=== PATIENT | male | born 1985 ===

== ENCOUNTER 2023-12-10 09:09 | Emergency (ER) | payer BC, SELFPAY ==
--- NOTE | ~2023-12-10 | CT_ITS ---
EXAMINATION: CT ABDOMEN AND PELVIS WITHOUT CONTRAST CLINICAL INFORMATION: Flank pain COMPARISON: None available. TECHNIQUE: Multidetector volumetric imaging was performed from the superior aspect of the liver through the pubic symphysis. Sagittal and coronal reformatted images were obtained on the technologist's workstation. This CT examination was performed using dose optimization techniques as appropriate, variously including the following: *Automated exposure control *Adjustment of mA and/or kV according to patient size (this includes techniques or standardized protocols for targeted exams where dose is matched to indication/reason for exam; i.e. extremities or head) *Use of iterative reconstruction technique DLP: 359 mGy-cm FINDINGS: LUNG BASES: The visualized lung bases are unremarkable. LIVER, GALLBLADDER, AND BILIARY TREE: The liver is normal in size, shape, and attenuation. No focal hepatic lesion or biliary ductal dilatation is present. The gallbladder is unremarkable with no evidence of radiopaque gallstones, gallbladder wall thickening, or obvious pericholecystic inflammatory changes. PANCREAS: Punctate calcification is seen at the tail of the pancreas possibly related to adjacent splenic vasculature. SPLEEN: Unremarkable. ADRENAL GLANDS: Unremarkable. KIDNEYS AND URETERS: 1 mm punctate stone central left kidney nonobstructive. 2 mm punctate stone mid left kidney nonobstructive. No suspicious mass, hydronephrosis or perinephric collection in either kidney. BLADDER: Unremarkable. GASTROINTESTINAL TRACT: Moderate stool burden in the sigmoid. There does appear to be mural thickening and induration in the transverse colon which is decompressed. Mild colitis not excluded. There may be a very mild element of pericolonic induration as well. The ascending colon appears normal. Appendix normal. No bowel obstruction. No drainable collections. ABDOMINAL WALL: No significant hernia is appreciated. LYMPH NODES: Normal. VASCULAR: Unremarkable. PELVIC VISCERA: Unremarkable. OSSEOUS STRUCTURES: Unremarkable. Tiny punctate bone island right iliac bone. Lumbar spine intact. CT/CT abdomen pelvis wo IV con IMPRESSION: Decompressed transverse colon versus an appearance of a mild colitis. Tiny punctate left nephroliths. No hydronephrosis. Fleischner guidelines were followed. Electronically signed by: Niranjan Marina MD 12/10/2023 11:20 AM EDT
[2023-12-10 09:12] VITALS: PULSE 80; RESP 18; TEMP 37; O2SAT 97; BMI 23.9
[2023-12-10 09:45] LABS: MANUAL DIFF FLAG NO
[2023-12-10 09:46] LABS: Basophils Absolute Auto 0.1 X10*3/uL (0.0-0.2); Basophils Percent Auto 0.5 % (0-2); Eosinophils Percent Auto 0.3 % (0-4); Hematocrit 45.5 % (42.0-52.0); Hemoglobin 15.6 g/dl (14.0-18.0); Imm Gran Abs Auto 0.02 X10*3/uL (0.00-0.03); Imm Gran Pct Auto 0.2 % (0.0-0.4); Lymphocytes Absolute Auto 1.8 X10*3/uL (1.2-4.9); Mean Corpuscular HGB Conc 34.3 g/dl (31.0-36.0); Mean Corpuscular Hemoglobin 30.2 pg (27.0-33.0); Mean Corpuscular Volume 88.2 fL (80.0-98.0); Mean Platelet Volume 9.6 fL (9.4-12.4); Monocytes Absolute Auto 0.5 X10*3/uL (0.1-1.2); Monocytes Percent Auto 5.1 % (2-11); Neutrophils Absolute Auto 7.1 x10*3/uL (2.0-8.3); Neutrophils Percent Auto 74.9 % (45-73); Platelet Count 300 X10*3/uL (160-400); Red Blood Count 5.16 X10*6/uL (4.60-5.80); Red Cell Distribution Width 13.3 % (11.0-16.0); White Blood Count 9.4 X10*3/uL (4.8-10.8)
[2023-12-10 09:59] LABS: Alanine Aminotransferase 28 U/L (0-40); Albumin Level 4.6 g/dL (3.5-5.0); Alkaline Phosphatase 82 U/L (39-117); Anion Gap 13 (12-20); Aspartate Amino Transferase 22 U/L (5-37); Bilirubin Total 0.3 mg/dL (0.0-1.0); Blood Urea Nitrogen 14 mg/dL (9-16); Calcium 9.8 mg/dL (8.4-10.2); Carbon Dioxide 23 mmol/L (22-29); Chloride 109 mmol/L (96-108); Creatinine Clr Calc Pharmacy 93.7; Estimated Glomerular Filt Rate > 60; Glucose Random 137 mg/dL (60-115); Potassium 4.2 mmol/L (3.3-5.1); Sodium 141 mmol/L (135-145); Total Protein 7.1 g/dL (6.5-8.0)
[2023-12-10 10:00] VITALS: BP 125/79; PULSE 65; RESP 18; O2SAT 98
--- NOTE | 2023-12-10 10:02 | PC.NURSE ---
Pt comes from home for abd/flank pain starting a few days ago. Pt reports he's had a hx of kidney stones, last being a few years ago. Last kidney stones he had, he was able to pass them. Has not noticed any hematuria/frequency/incontinence, pt states he did have a little bit of burning this morning during urination. A/ox4, respirations even and unlabored, lung sounds cta bilaterally, s1 and s2 heard, abdomen soft, tender on palpation. Denies nausea/vomiting, cp/sob, dizziness. Vital signs updated, family at bedside, pt updated on plan for CT scan, labs, and UA. Call magallanes within reach, all needs met at this time.
[2023-12-10 10:26] LABS: Influenza A PCR NEGATIVE (Negative); Influenza B PCR NEGATIVE (Negative); Resp Syncy Virus RNA Qual PCR NEGATIVE (Negative); SARS COV2 PCR INHOUSE NEGATIVE (Negative)
--- NOTE | 2023-12-10 11:05 | ED.ABDPAIN ---
HPI - Abdominal Pain General Chief Complaint: Abdominal Pain Stated Complaint: abd pain-vomiting Time Seen by Provider: 12/10/23 09:52 History of Present Illness HPI narrative: Patient is a 38-year-old male presents today with having left-sided flank pain. Sudden onset radiating to the left lower quadrant. The pain is sharp. Very similar to previous bouts of kidney stone. There is no fever no chills. There is some nausea vomiting associated with this. Very abrupt. Started this morning. Patient denies any issues with bowel movement. There was no coughing or congestion or upper respiratory symptoms. There is no chest pain. Patient is from home. Related Data Previous Rx's ?Medication ?Instructions ?Recorded ibuprofen 400 mg tablet 400 mg PO Q6H PRN pain #20 tabs 12/10/23 ondansetron 4 mg disintegrating 4 mg PO TID PRN nausea and 12/10/23 tablet vomiting 5 days #10 tabs oxycodone 5 mg tablet 5 mg PO Q8H PRN pain #7 tabs 12/10/23 Allergies Allergy/AdvReac Type Severity Reaction Status Date / Time No Known Allergies Allergy Verified 12/10/23 09:14 Review of Systems Review of Systems No fever no chills no diaphoresis Yes all other systems are reviewed and are negative [facility] Past Medical History Attestation statement: The following information was validated with the patient. Social History Social History Advance Directives: No Do you have a plan to hurt others: No Plan Physical Exam ED Vital Signs: Vital Signs - 24 hr 12/10/23 09:12 12/10/23 10:00 12/10/23 11:11 Temperature 98.6 F Pulse Rate 80 65 Respiratory Rate 18 18 18 Blood Pressure 125/79 Pulse Oximetry 97 98 Oxygen Delivery Method Room Air Room Air BMI result Body Mass Index 23.9 Appearance: Alert. Oriented X3. No acute distress. Eyes: Pupils equal, round and reactive to light. ENT: Pharynx normal. Neck: Normal inspection. Neck supple. No lymph nodes noted. No crepitus CVS: Normal heart rate and rhythm. Pulses normal. Normal S1 and S2 Respiratory: No respiratory distress. Breath sounds normal. No Wheezing. No rales Abdomen: Soft and nontender. No rigidity. No distention. good BS x4 Skin: Skin warm and dry. Normal skin color. Normal skin turgor. Extremities: No lower extremity edema. Neurovascular intact to all extremities. No Lacerations. No Rash Neuro: Oriented X 3. No motor deficit. No sensory deficit. Moving all extermities. No slurred speech Medical Decision Making Medical Decision Making [facility] Narrative: Positive pain to the left flank area. Previous history of kidney stone. Patient's urine showed no signs of infection but did show positive blood. The finding was discussed with patient. A CT scan of the abdomen pelvis was done. Per Radiology report there was no evidence of ureteral stone. No simple explanation for patient's findings. Nevertheless patient's pain is controlled with medications. Will have patient follow-up with urology on an outpatient basis patient's kidney function is normal. He is in no distress. Question passed stone. Will need follow-up for the bloody urine nevertheless. Urology follow-up on an outpatient basis. Currently in stable condition. Differential Diagnosis Differential Diagnoses: The differential diagnosis associated with the presentation includes Kidney stone, tumor, infection Admission/Observation Consideration of admission/observation: Escalation of care including admission/observation considered Lab Data [facility] Lab Attestation statement: I reviewed the patient's lab results. 12/10/23 09:42 12/10/23 09:42 Labs: Lab Results 12/10/23 12/10/23 Range/Units 09:42 11:59 WBC 9.4 (4.8-10.8) X10*3/uL RBC 5.16 (4.60-5.80) X10*6/uL Hgb 15.6 (14.0-18.0) g/dl Hct 45.5 (42.0-52.0) % MCV 88.2 (80.0-98.0) fL MCH 30.2 (27.0-33.0) pg MCHC 34.3 (31.0-36.0) g/dl RDW 13.3 (11.0-16.0) % Plt Count 300 (160-400) X10*3/uL MPV 9.6 (9.4-12.4) fL Immature Gran % (Auto) 0.2 (0.0-0.4) % Neut % (Auto) 74.9 H (45-73) % Lymph % (Auto) 19.0 L (20-40) % Edwards % (Auto) 5.1 (2-11) % Eos % (Auto) 0.3 (0-4) % Baso % (Auto) 0.5 (0-2) % Lymph # (Auto) 1.8 (1.2-4.9) X10*3/uL Edwards # (Auto) 0.5 (0.1-1.2) X10*3/uL Eos # (Auto) 0.0 (0.0-0.4) X10*3/uL Baso # (Auto) 0.1 (0.0-0.2) X10*3/uL Abs Immat Gran (auto) 0.02 (0.00-0.03) X10*3/uL Absolute Neuts (auto) 7.1 (2.0-8.3) x10*3/uL Absolute Nucleated RBC 0.000 (0.0-0.012) X10*3/uL Nucleated RBC % (auto) 0.0 (0.0-0.2) /100WBC Sodium 141 (135-145) mmol/L Potassium 4.2 (3.3-5.1) mmol/L Chloride 109 H (96-108) mmol/L Carbon Dioxide 23 (22-29) mmol/L Anion Gap 13 (12-20) BUN 14 (9-16) mg/dL Creatinine 1.15 (0.5-1.4) mg/dL Estim Creat Clear Calc 93.7 Estimated GFR > 60 Random Glucose 137 H (60-115) mg/dL Calcium 9.8 (8.4-10.2) mg/dL Magnesium 2.0 (1.6-2.6) mg/dL Total Bilirubin 0.3 (0.0-1.0) mg/dL AST 22 (5-37) U/L ALT 28 (0-40) U/L Alkaline Phosphatase 82 (39-117) U/L Total Protein 7.1 (6.5-8.0) g/dL Albumin 4.6 (3.5-5.0) g/dL Urine Color Yellow Urine Appearance Clear Urine pH 7.5 (5.0-9.0) Ur Specific [place] 1.015 (1.005-1.025) Urine Protein Negative (Neg-Trace) mg/dL Urine Glucose (UA) Negative (Negative) mg/dL Urine Ketones Negative (Negative) mg/dL Urine Blood Moderate (2+) H (Negative) Urine Nitrite Negative (Negative) Ur Leukocyte Esterase Negative (Negative) Urine RBC >20 H (0-2) /HPF Urine WBC 6-10 H (0-5) /HPF Ur Squamous Epith Cells 0-2 (0-2) /HPF Urine Bacteria None Seen (None Seen) Hyaline Casts 0-2 (0-2) /LPF Influenza Type A (PCR) NEGATIVE (Negative) Influenza Type B (PCR) NEGATIVE (Negative) RSV RNA Qual (PCR) NEGATIVE (Negative) SARS-CoV-2 RNA (RT-PCR) NEGATIVE (Negative) Independent Interpretation I performed an independent interpretation of an: CT Scan Radiology Impression Discussion of test interpretation with radiology: I have reviewed the radiologist's reading. Independent Historian Clinical information obtained from an independent historian. History obtained from or confirmed by: Spouse Prescription Management I considered prescription management with: Pain Medication (Pain medication given) Chronic Conditions Previous kidney stone Medications Administered Discontinued Medications Generic Name Dose Route Start Last Admin Trade Name Freq PRN Reason Stop Dose Admin Hydromorphone HCl 0.5 mg 12/10/23 11:03 12/10/23 11:11 Hydromorphone Hcl 0.5 Mg/0.5 Ml Syringe IVPUSH 12/10/23 11:04 0.5 mg ONCE ONE Administration Protocol Sodium Chloride 1,000 mls @ 999 mls/hr 12/10/23 11:15 12/10/23 12:21 Ns IV 12/10/23 12:15 Infused .Q1H1M AURY Infusion Sodium Chloride 1,000 mls @ 999 mls/hr 12/10/23 11:15 12/10/23 12:21 Ns IV 12/10/23 12:15 Infused .Q1H1M AURY Infusion Ketorolac Tromethamine 30 mg 12/10/23 11:03 12/10/23 11:11 Ketorolac Tromethamine 30 Mg/Ml Vial IVPUSH 12/10/23 11:04 30 mg ONCE ONE Administration Discharge Plan Discharge Clinical Impression: Abdominal pain Patient Disposition: Home, Self-Care Instructions: Abdominal Pain (ED) Additional Instructions: Blood was found in your urine sample. Please closely follow-up with urology. Very small risk of malignancy exists. Prescriptions: New ibuprofen 400 mg tablet 400 mg PO Q6H PRN (Reason: pain) Qty: 20 0RF ondansetron 4 mg tablet,disintegrating 4 mg PO TID PRN (Reason: nausea and vomiting) 5 Days Qty: 10 0RF oxycodone 5 mg tablet 5 mg PO Q8H PRN (Reason: pain) Qty: 7 0RF Rx Instructions: Partial Fill upon patient request. Referrals: Saman Lynch MD [Physician] - 12/15/23 Print Language: Iraqi
[2023-12-10 11:11] VITALS: RESP 18
[2023-12-10] MEDS: 0.9 % Sodium Chloride 1,000 ML 999 ML IV ×2 (11:11)
[2023-12-10] MEDS: HYDROmorphone HCl 0.5 MG/0.5 ML SYRINGE IVPUSH (11:11)
[2023-12-10] MEDS: Ketorolac Tromethamine 30 MG/ML VIAL IVPUSH (11:11)
--- NOTE | 2023-12-10 12:04 | PC.NURSE ---
Pt oob ambulating to bathroom with steady gait. Urine sample obtained and sent to lab. Pt medicated per MAY for pain with good effect. Call magallanes within reach, all needs met at this time.
[2023-12-10 12:16] LABS: Appearance Urine Clear; Bacteria Urine None Seen (None Seen); Color Urine Yellow; Glucose Urine UA Negative (Negative); Hyaline Casts Urine 0-2 /LPF (0-2); Leukocyte Esterase Urine Negative (Negative); Nitrite Urine Negative (Negative); PH 7.5 (5.0-9.0); RBC Urine >20 /HPF (0-2); Specific Gravity - Urine 1.015 (1.005-1.025); Squamous Epithelial Cell Urine 0-2 /HPF (0-2); UMIC TRIGGER UACC YES; Urine Blood Moderate (2+) (Negative); Urine Ketones Negative (Negative); Urine Protein Negative (Neg-Trace)
[2023-12-10 13:21] VITALS: BP 125/75; PULSE 80; RESP 16; TEMP 37.2; O2SAT 99
[2023-12-10 13:30] VITALS: BP 120/84; PULSE 80; RESP 16; TEMP 37.2; O2SAT 98
== END 2023-12-10 13:31 | disposition home or self-care (01) ==
PROVIDERS: Physician Assistant Medical; Emergency Provider Emergency Medicine Emergency Medical Services; PCP Nurse Practitioner Primary Care
DX: R10.32 Left lower quadrant pain (principal); R11.2 Nausea with vomiting, unspecified; R31.9 Hematuria, unspecified; Z87.442 Personal history of urinary calculi; Z03.818 Encounter for observation for suspected exposure to other biological agents ruled out
CPT/HCPCS: 0241U; 74176; 80053; 81001; 83735; 85025; 96361; 96374; 96375; 99284; 99285; J1170; J1885